=== PATIENT | female | born 1980 | race Two or more races ===

== ENCOUNTER 2024-11-10 11:42 | Emergency (ER) | payer SELFPAY ==
[2024-11-10 12:08] VITALS: RESP 19; TEMP 98.6; BMI 23.1
[2024-11-10] MEDS ORDERED: ONDANSETRON 4 MG/2 ML VIAL ONE (13:33)
[2024-11-10] MEDS ORDERED: ACETAMINOPHEN INJECTION 100 ML ONE (13:33)
[2024-11-10] MEDS: ACETAMINOPHEN 1000 MG/100 ML BAG IVPB ONE (14:01)
[2024-11-10] MEDS: SODIUM CHLORIDE 0.9% 1000 ML INFUS.BAG IV ONE (14:01)
[2024-11-10 14:05] LABS: MCHC 29.9 g/dl (32.2-35.5); MEAN CELL VOLUME 71.0 fl (79.4-94.8); MEAN PLT VOLUME 10.5 fl (9.4-12.3); RDW 17.6 % (12.2-17.1)
[2024-11-10 14:06] LABS: URINE APPEARANCE CLEAR; URINE BILIRUBIN NEGATIVE (NEGATIVE); URINE COLOR YELLOW; URINE GLUCOSE (UA) NEGATIVE (NEGATIVE); URINE KETONE 1+ (NEGATIVE); URINE LEUK ESTERASE NEGATIVE (NEGATIVE); URINE NITRITE NEGATIVE (NEGATIVE); URINE PROTEIN NEGATIVE (NEGATIVE); URINE UROBILINOGEN 0.2 mg/dL (0.2-1.0)
[2024-11-10 14:36] LABS: GLUCOSE,RANDOM 94.0 mg/dL (74-106); TOT PROT 7.3 g/dl (6.4-8.2)
[2024-11-10 14:37] LABS: CO2 23.0 mmol/L (21-32)
[2024-11-10 14:39] LABS: ALK PHOS 59.0 U/L (40-150)
[2024-11-10 14:41] LABS: SGOT/AST 26.0 U/L (5-34); SGPT/ALT 23.0 U/L (0-55)
[2024-11-10 14:42] LABS: CREATININE 0.64 mg/dL (0.55-1.3)
[2024-11-10] MEDS: ONDANSETRON 4 MG/2 ML VIAL IVPUSH ONE (14:42)
[2024-11-10 15:21] LABS: HCV DIAGNOSTIC IN-HOUSE W/RFLX NON-REACTIVE (NONREACTIVE); HIV INTERPRETATION NEGATIVE (NEGATIVE)
[2024-11-10 16:12] VITALS: BP 133/84; PULSE 86
== END 2024-11-10 16:12 | disposition home or self-care (01) ==
LOC: JER 11:42
PROC: 3E033NZ Introduction of Analgesics, Hypnotics, Sedatives into Peripheral Vein, Percutaneous Approach (ICD-10-PCS; principal; 2024-11-10)
DX: F41.9 Anxiety disorder, unspecified (principal); R11.2 Nausea with vomiting, unspecified; R19.7 Diarrhea, unspecified; R30.0 Dysuria; R53.1 Weakness; F32.A Depression, unspecified; R20.2 Paresthesia of skin; R63.8 Other symptoms and signs concerning food and fluid intake; R10.9 Unspecified abdominal pain
CPT/HCPCS: 36415; 80053; 81003; 83690; 83735; 84100; 84443; 84703; 85025; 86803; 87086; 87389; 93005; 93010; 99284-25